=== PATIENT | female | born 1955 | race Caucasian/White ===

== ENCOUNTER 2020-12-04 12:00 | Outpatient (CLI) | payer BC ==
[~2020-12-04 12:00] MED LIST: ATEN-41 PO; FENT1PAT6
== END 2020-12-04 20:16 | disposition home or self-care (01) ==
LOC: SRD 12:00
PROVIDERS: ATTEND Otolaryngology
DX: R13.10 Dysphagia, unspecified (principal)
CPT/HCPCS: 74220-TC